=== PATIENT | male | born 1935 | race Caucasian/White ===

== ENCOUNTER 2025-03-04 16:28 | Emergency (ER) | payer SELFPAY ==
[2025-03-04 16:29] VITALS: BMI 20.1
[2025-03-04 16:30] VITALS: BP 117/57
[2025-03-04 16:35] VITALS: BP 117/57
[2025-03-04 17:00] VITALS: BP 94/60
[2025-03-04 17:20] LABS: Hematocrit 33.7 % (39.0-52.0); Hemoglobin 11.7 g/dL (13.0-18.0); Mean Corp Hgb Conc. 34.7 g/dL (33.0-37.0); Mean Corpuscular Volume 90.6 fL (80.0-94.0); Nucleated Red Blood Cells % 0 % (-); Platelet Count 182 10^3/uL (130-400); Red Cell Dist. Width 13.1 % (11.5-14.5)
[2025-03-04 17:28] LABS: Blood Urea Nitrogen 15 mg/dl (9-20); Calcium 9.0 mg/dl (8.4-10.2); Carbon Dioxide 27 mmol/L (22-30); Chloride 102 mmol/L (98-107); Estimated Creatinine Clearance 52 ml/min; Glucose 117 mg/dl (70-99); Potassium 3.9 mmol/L (3.5-5.1); Sodium 136 mmol/L (135-145); eGFR > 60.00
[2025-03-04 17:30] VITALS: BP 116/93
--- NOTE | 2025-03-04 17:57 | ED.GENMED ---
History of Present Illness
General
Chief Complaint: Failure to Thrive
Source: patient, records and ambulance crew
Time Seen by Provider: 03/04/25 17:21
History of Present Illness
History of Present Illness:
89-year-old male with past medical history of mild cognitive impairment and neurocognitive disorder, cardiomyopathy presenting to the ER from [facility] in [place] for evaluation after reportedly making a suicidal statement and threatening
staff due to being upset that he has to live at a dementia facility stating to myself and multiple members of our nursing staff that he does not feel that he has advanced dementia and need to be in a facility where everybody else has significant
memory impairment. Patient states his plan was to go on a hunger strike with his last time eating or drinking anything being today. Patient has no other physical concerns at this time.
Past History
Past History
ED Past Medical History: Other (Neurocognitive impairment)
ED Past Surgical History: None
Social History
Tobacco: Non-smoker
Alcohol: None
Drug: None
Living: [facility]
Employment: Retired
Review of Systems
Review of Systems
All Other Systems: ROS reviewed and negative except as documented in HPI and ROS
Phy Exam
Physical Exam
Physical Exam:
GENERAL: Alert , in no apparent distress
HEAD: Normocephalic atraumatic
EYE: conjunctiva clear
NECK: Supple, no significant adenopathy.
ENT: o/p clr, mmm.
CARDIAC: Regular rate and rhythm
LUNGS: Clear breath sounds bilaterally, no acute respiratory distress, no wheezes/rales/rhonchi
NEUROLOGICAL: Alert and oriented
SKIN: Warm and dry, skin intact.
MUSCULOSKELETAL: well perfused.
PSYCH: Normal and appropriate interaction.
Scores
Heart Failure Risk
Heart Failure Risk Score: Not Applicable
Heart Score for Chest Pain Patients
STEMI patient?: Not applicable
Withdrawal Assessment of Alcohol
Withdrawal Assessment Completed?: Not applicable
Course
Orders/Labs/Results
Orders:
Orders
03/04/25 17:11
Basic Metabolic Panel Stat
Complete Blood Count/With Diff Urgent
03/04/25 17:26
Crisis Consult Urgent
Reason for Consult: reported suicidal threat
03/04/25 17:57
Urinalysis Reflex To Culture Urgent
Date Specimen was Collected: 03/04/25
Time Specimen was Collected: 17:29
Abnormal Lab Results
03/04/25 03/04/25
17:11 17:57
RBC 3.72 L 10^6/uL
(4.70-6.10)
Hgb 11.7 L g/dL
(13.0-18.0)
Hct 33.7 L %
(39.0-52.0)
MCH 31.5 H pg
(27.0-31.0)
Absolute Lymphs (auto) 0.7 L 10^3/uL
(1.2-3.4)
Neutrophils % 78.3 H %
(42.2-75.2)
Lymphocytes % 11.6 L %
(20.5-51.1)
Glucose 117 H mg/dl
(70-99)
Urine Urobilinogen 3+ A
(Neg - 1+)
Urine Glucose 4+ A
(Negative)
03/04/25 17:11
03/04/25 17:11
Vital Signs
Initial and Last Documented VS:
Initial Vital Signs
Temp Pulse Resp BP Pulse Ox
98.1 F 75 16 117/57 100
03/04/25 16:30 03/04/25 16:30 03/04/25 16:30 03/04/25 16:30 03/04/25 16:30
Last Documented Vital Signs
Temp Pulse Resp BP Pulse Ox
98 F 67 19 108/91 100
03/04/25 21:18 03/04/25 21:18 03/04/25 21:18 03/04/25 21:18 03/04/25 21:18
MDM/Problems Addressed
Differential Diagnosis Includes:
Adjustment disorder
Dementia/delirium
UTI
Suicidal ideation although patient stating he does not want to kill himself that he is just upset with his current living situation
MDM/Problems Addressed:
89-year-old male presenting to the emergency department for evaluation from his [facility] after he reportedly made some suicidal threats. Patient's plan was for hunger strike, eating and drinking here at the hospital. Patient in no acute
distress. Seen by crisis team who cleared patient to be discharged, does not further psychiatric care inpatient. Labs unrevealing, urinalysis pending. Planning for discharge back to patient's living facility.
Chronic conditions affecting care: Neurological disorder
Acute Exacerbation and/or Progression of Chronic Illness: Neurological disorder
*Pulse Oximetry
SaO2: 99
Oxygen Mode of Delivery: Room air
Patient hypoxic: no
*Critical Care Note
Total Time (30-74mins, 75-104mins- exclusive of procedures): Not Applicable
Patient Management
Social determinants of health affecting care: Living situation
Escalation/DeEscalation of care consider admission/obs:
Patient seen by crisis staff, cleared for discharge. He remained stable and overall is okay going back to his current living facility.
ED Attending Note
-
Portions of this chart may have been created with voice recognition software.� Occasional wrong word or��sound alike� substitutions may have occurred due to the inherent limitations of voice recognition software.
Discharge Plan
Departure
Patient Disposition: Intermediate/SNF
Date of Disposition: 03/04/25
Time of Disposition: 17:57
Patient with high blood pressure during this ER visit?: No
Discharge Problem:
Adjustment disorder with mixed disturbance of emotions and conduct
Prescriptions:
No Action
glycopyrrolate 1 mg Tablet
1 mg PO TID
atorvastatin 40 mg Tablet
40 mg PO QPM
trazodone 50 mg Tablet
50 mg PO HS PRN (Reason: anxiety)
spironolactone 25 mg Tablet
25 mg PO DAILY
pramipexole 0.5 mg Tablet
0.5 mg PO HS
lorazepam 0.5 mg Tablet
0.5 mg PO TID PRN (Reason: anxiety)
folic acid 1 mg Tablet
1 mg PO DAILY
midodrine 2.5 mg Tablet
2.5 mg PO TID
furosemide 20 mg Tablet
20 mg PO DAILY
gabapentin 100 mg Capsule
100 mg PO HS
oxybutynin chloride 5 mg Tablet
5 mg PO DAILY
escitalopram oxalate 20 mg Tablet
20 mg PO DAILY
Eliquis 5 mg Tablet
5 mg PO BID
Jardiance 10 mg Tablet
10 mg PO DAILY
sacubitril-valsartan [Entresto] 24-26 mg Tablet
1 tab PO BID
Referrals:
UNKNOWN - PT DOES,NOT KNOW [Family Provider]
Interventions
Interventions:
*Risk Screen - Suicide Last Done: 03/04/25 16:30
*General Assessment Last Done: 03/04/25 16:30
*Neglect/Abuse Screening Last Done: 03/04/25 17:04
*ED- Fall Risk Assessment Last Done: 03/04/25 17:04
*ED COVID-19 Vaccine History Last Done: 03/04/25 17:04
Discharge Date and Time
Print Language: GREENLANDIC
[2025-03-04 18:18] LABS: Urine Character Clear (Clear)
--- NOTE | 2025-03-04 21:15 | EDRN ---
Attempted to call report multiple time to [facility] in [place] @ . No answer thrice. Each time this RN used the numbers that prompted to the nursing area to give report the phone would ring once and immediately disconnect.
[2025-03-04 21:18] VITALS: BP 108/91
[2025-03-04 23:52] VITALS: BP 131/61
== END 2025-03-05 ==
LOC: EMR 16:28
PROVIDERS: Physician Assistant Medical; EMERGENCY PHYSICIAN Emergency Medicine
DX: F43.25 Adjustment disorder with mixed disturbance of emotions and conduct (principal); G31.84 Mild cognitive impairment of uncertain or unknown etiology; I42.9 Cardiomyopathy, unspecified
CPT/HCPCS: 99283; 80048; 81003; 85025